=== PATIENT | male | born 1985 | race Caucasian/White ===

== ENCOUNTER 2019-08-14 10:14 | Emergency (ER) | payer OTHER ==
[~2019-08-14] VITALS: Ht 172.7 cm; Wt 54.4 kg
[~2019-08-14 10:14] MED LIST: NO TOMA MED
== END 2019-08-14 12:41 | disposition home or self-care (01) ==
LOC: ER 10:14
DX: R10.12 Left upper quadrant pain (principal)

== ENCOUNTER 2020-05-25 07:32 | Emergency (ER) | payer OTHER ==
[~2020-05-25] VITALS: Ht 167.6 cm; Wt 63.5 kg
== END 2020-05-25 11:20 | disposition home or self-care (01) ==
LOC: ER 07:32
DX: R10.13 Epigastric pain (principal); Z03.818 Encounter for observation for suspected exposure to other biological agents ruled out

== ENCOUNTER 2020-09-25 06:03 | Emergency (ER) | payer OTHER ==
[~2020-09-25] VITALS: Ht 175.3 cm; Wt 61.7 kg
== END 2020-09-25 10:30 | disposition home or self-care (01) ==
LOC: ER 06:03
DX: R07.89 Other chest pain (principal); M62.830 Muscle spasm of back